=== PATIENT | male | born 1970 | race Caucasian/White ===

== ENCOUNTER 2017-08-14 12:36 | Emergency (ER) | payer MEDICARE, MEDICAID ==
[~2017-08-14] VITALS: Ht 188 cm; Wt 115.7 kg
[~2017-08-14 12:36] MED LIST: ALLO100T PO; ALPR1TAB2 PO; MORP60TA25 PO; OXYC10TA44 PO; PAR20T PO; TRAZ100T2 PO; WARF5TAB PO
[2017-08-14 13:26] LABS: Basophils # (auto) 0 uL; Basophils % (auto) 0.7 % (0.0-2.0); Eosinophils # (auto) 0.1 uL; Hematocrit 44.4 % (41.0-53.0); Lymphocytes % (auto) 16.4 % (10.0-50.0); Mean Corpuscular Hgb Conc. 33.7 g/dL (32.0-36.0); Mean Corpuscular Volume 94.8 fL (80.0-100.0); Mean Platelet Volume 7.3 fL (6.9-10.8); Monocytes # (auto) 0.3 uL; Monocytes % (auto) 5.6 % (0.0-12.0); Neutrophils # (auto) 4.5 uL; Neutrophils % (auto) 75.3 % (37.0-80.0); Platelet Count (auto) 228 10^3/uL (140-450); Red Cell Distribution Width 14.2 % (11.8-14.3)
[2017-08-14 13:45] LABS: Albumin 3.7 g/dL (3.4-5.0); Anion Gap 4 (5-15); Aspartate Aminotransferase 47 U/L (15-37); BUN/Creatinine Ratio 17.1; Blood Urea Nitrogen 19 mg/dL (7-18); Calcium 8.9 mg/dL (8.5-10.1); Carbon Dioxide 30 mmol/L (21-32); Chloride 104 mmol/L (98-107); GFR African American 92 mL/min; GFR Non-African American 76 mL/min; Glucose 132 mg/dL (74-106); Magnesium 2.4 mg/dL (1.6-2.6); Potassium 4.6 mmol/L (3.5-5.1); Sodium 138 mmol/L (136-145)
[2017-08-14 13:50] LABS: Alkaline Phosphatase 101 U/L (45-117); Bilirubin, Total 0.4 mg/dL (0.2-1.0); Total Protein 7.8 g/dL (6.4-8.2)
[2017-08-14] MEDS ORDERED: SODIUM CHLORIDE 0.9% 1,000 ML IV ONE ×2 (14:24→17:45)
[2017-08-14] MEDS ORDERED: diphenhdrAMINE HCL 50 MG/1 ML VL IV ONE (14:30)
[2017-08-14 14:57] LABS: Prothrombin Time 60.2 sec (9.37-12.3)
[2017-08-14 15:06] LABS: INR 5.43 (0.9-1.15); Partial Thromboplastin Time 75.8 sec (22.64-33.71)
[2017-08-14] MEDS ORDERED: NITROGLYCERIN 0.4 MG SL TAB SL PRN (17:45)
[2017-08-14] MEDS ORDERED: MORPHINE SULF INJ 2 MG/ML SYRINGE 1ML IV PRN (17:45)
[2017-08-14 17:53] VITALS: BP 138/88
== END 2017-08-14 18:07 | disposition left against medical advice (07) ==
LOC: ER 12:53
DX: F31.9 Bipolar disorder, unspecified (principal); I82.413 Acute embolism and thrombosis of femoral vein, bilateral; T45.511A Poisoning by anticoagulants, accidental (unintentional), initial encounter; G24.01 Drug induced subacute dyskinesia; M10.9 Gout, unspecified; I10 Essential (primary) hypertension; F41.9 Anxiety disorder, unspecified; F20.9 Schizophrenia, unspecified; F17.210 Nicotine dependence, cigarettes, uncomplicated; F12.10 Cannabis abuse, uncomplicated; Z86.711 Personal history of pulmonary embolism
CPT/HCPCS: 36415; 71020; 80053; 83735; 84443; 84484; 85025; 85610; 85730; 93005; 94761; 96361; 96374; 99285; J1200